=== PATIENT | male | born 1985 | race African-American/Black ===

== ENCOUNTER 2017-05-10 16:51 | Emergency (ER) | payer OTHER ==
[~2017-05-10] VITALS: Ht 175.3 cm; Wt 86.7 kg
[2017-05-10 17:05] VITALS: BP 144/80
[2017-05-10] MEDS ORDERED: TRAMADOL HCL50 MG PO (18:25)
[2017-05-10] MEDS ORDERED: XYLOCAINE VISC100 ML PO (18:25)
[2017-05-10] MEDS ORDERED: AMOXICILLIN875 MG PO (18:25)
[2017-05-10] MEDS ORDERED: MEDROL DOSEPAK4 MG PO (18:25)
== END 2017-05-10 18:43 | disposition home or self-care (01) ==
LOC: EME 16:51
DX: J02.9 Acute pharyngitis, unspecified (principal); F17.210 Nicotine dependence, cigarettes, uncomplicated
CPT/HCPCS: 87651 90; 99281; 99283